=== PATIENT | female | born 1995 | race Caucasian/White ===

== ENCOUNTER 2016-12-09 16:03 | Emergency (ER) | payer SELFPAY ==
--- NOTE | 2016-12-09 16:15 | ER Document Report ---
ED Medical Screen (RME) - General Stated Complaint: FLU LIKE SYMPTOMS Notes: Patient is a 21-year-old female presents emergency Department complaining of sore throat, subjective fever although not flashes and nausea started yesterday I have greeted and performed a rapid initial assessment of this patient. A comprehensive ED assessment and evaluation of the patient, analysis of test results and completion of the medical decision making process will be conducted by additional ED providers. TRAVEL OUTSIDE OF THE [place] IN LAST 30 DAYS: No - Related Data Allergies/Adverse Reactions: No Known Allergies Allergy (Verified 06/09/13 01:59) Past Medical History - Immunizations Immunizations up to date: Yes Hx Diphtheria, Pertussis, Tetanus Vaccination: Yes
--- NOTE | 2016-12-09 17:26 | ER Document Report ---
ED ENT - General Chief Complaint: Sore Throat Stated Complaint: FLU LIKE SYMPTOMS Mode of Arrival: Ambulatory Information source: Patient TRAVEL OUTSIDE OF THE [place] IN LAST 30 DAYS: No - Related Data Allergies/Adverse Reactions: No Known Allergies Allergy (Verified 12/09/16 16:14) Past Medical History - Social History Smoking Status: Unknown if Ever Smoked Chew tobacco use (# tins/day): No Frequency of alcohol use: None Drug Abuse: None Family History: Reviewed & Not Pertinent Patient has suicidal ideation: No Patient has homicidal ideation: No Renal/ Medical History: Denies: Hx Peritoneal Dialysis Surgical Hx: Negative - Immunizations Immunizations up to date: Yes Hx Diphtheria, Pertussis, Tetanus Vaccination: Yes Physical Exam - Vital signs Vitals: Temp Pulse Resp BP Pulse Ox 98.0 F 118 H 16 127/79 H 96 12/09/16 16:14 12/09/16 16:14 12/09/16 16:14 12/09/16 16:14 12/09/16 16:14 Interpretation: Tachycardic. No: Hypotensive, Tachypneic, Febrile Course - Vital Signs Vital signs: Temp Pulse Resp BP Pulse Ox 98.0 F 118 H 16 127/79 H 96 12/09/16 16:14 12/09/16 16:14 12/09/16 16:14 12/09/16 16:14 12/09/16 16:14 Discharge - Discharge Clinical Impression: Strep pharyngitis Condition: Stable Disposition: HOME, SELF-CARE Instructions: Strep Throat ([facility]), Cephalexin ([facility]) Additional Instructions: REST, DRINK PLENTY OF FLUIDS. TAKE CEPHALEXIN DIRECTED. TYLENOL OR IBUPROFEN FOR FEVER OR PAIN CONTROL. FOLLOW UP IF NOT IMPROVING IN 3-4 DAYS, OR SOONER IF YOU GET WORSE, ANY TIME. Prescriptions: Cephalexin Monohydrate [Keflex 500 mg Capsule] 1,000 mg PO BID #40 capsule Forms: Return to Work
[2016-12-09 17:45] VITALS: BP 121/69
== END 2016-12-09 17:43 | disposition home or self-care (01) ==
LOC: ER 16:03
DX: J02.0 Streptococcal pharyngitis (principal); R00.0 Tachycardia, unspecified
CPT/HCPCS: 87804; 87880; 99283